=== PATIENT | male | born 1990 | race Caucasian/White ===

== ENCOUNTER 2017-01-08 03:42 | Emergency (ER) | payer SELFPAY ==
[2017-01-08] MEDS ORDERED: FENTANYL CITRATE INJ/PF 100 MCG/2 ML AMPUL IV ONE ×2 (05:30→07:50)
[2017-01-08] MEDS ORDERED: ONDANSETRON HCL INJ/PF 4 MG/2 ML SDV IV ONE (05:30)
--- NOTE | 2017-01-08 05:38 | ER Document Report ---
HPI - HPI Pain Level: 5 Notes: Patient is a 26yo male who presents to the ED c/o left lower leg pain, swelling , warmth x9 hours. The pain is described as a throb, sharp, and constant pain with occ tingling. [place] walking through tall grass when he felt something bite/scratch his anterior leg. Pt did not see what got his leg. He did not notice anything sticking out of his leg. He did notice a very small area with a drop of blood coming out. Pt states that by the time he got home, the pain in the leg started worsening and soon had trouble walking on the leg due to the pain. Pt states that he tried to go to sleep, but couldn't because of the pain. He woke up and vomited x1. Pt has been feeling feverish as well. Pt states that he "just doesn't feel good." Pt states that he can only move his toes because of the swelling and pain to his entire lower leg. On occasion he will feel the pain radiate proximally into his thigh. OTC meds have not been helping the pain. Pt denies any drug allergies or significant PMH. Denies any headache, sore throat, chest pain, palpitations, syncope, cough, shortness of breath, wheeze, dyspnea, abdominal pain, diarrhea, urinary retention, dysuria, hematuria, loss of control of bowel or bladder, saddle anesthesia, or rash. - DERM Skin Color: Normal Past Medical History - Social History Smoking Status: Current Every Day Smoker Family History: Reviewed & Not Pertinent Patient has suicidal ideation: No Patient has homicidal ideation: No Renal/ Medical History: Denies: Hx Peritoneal Dialysis - Immunizations Immunizations up to date: Yes Hx Diphtheria, Pertussis, Tetanus Vaccination: Yes Vertical Provider Document - CONSTITUTIONAL Agree With Documented VS: Yes Notes: PHYSICAL EXAMINATION: GENERAL: Well-appearing, well-nourished and in no acute distress. ENT: EAC clear b/l. TM's intact b/l without erythema, fluid, or perforation. Nares patent and without discharge. oropharynx clear without exudates. No tonsilar hypertrophy or erythema. Moist mucous membranes. No sinus tenderness. No angioedema. NECK: Normal range of motion, supple without lymphadenopathy LUNGS: Breath sounds clear to auscultation bilaterally and equal. No wheezes rales or rhonchi. HEART: Regular rate and rhythm without murmurs, rubs, gallops. ABDOMEN: Soft, nontender, nondistended abdomen. No guarding, no rebound. No masses appreciated. Normal bowel sounds present. No CVA tenderness bilaterally. Musculoskeletal: Lt lower leg: LROM to passive/active at the ankle. FROM to knee. Strength 4+/5. + swelling to the lower leg/ankle/foot with warmth and firmness throughout. No abscess or discharge noted. + tenderness to palp of the lower leg to light palpation. Very sensitive. Extremities: No cyanosis, clubbing, or edema b/l. Peripheral pulses 2+. Capillary refill less than 3 seconds. PSYCH: Normal mood, normal affect. SKIN: + 2 very small and close together puncture wounds to the anteroprox lower leg resembling probable snake bite. No necrosis visualized or streaks. - INFECTION CONTROL TRAVEL OUTSIDE OF THE [place] IN LAST 30 DAYS: No - RESPIRATORY O2 Sat by Pulse Oximetry: 100 Course - Re-evaluation Re-evalutation: 01/08/17 05:[address] Ames who also evaluated the patient: Pt is currently an afebrile, well-hydrated, 26yo male who presents with a suspected copperhead bite to the lower left leg. Vitals currently stable. Pt does not have any health insurance. Dr. Ames thoroughly reviewed the risks/ benefits of Crofab . Dr. Ames is not concerned about ACS at this time based on presentation. In this patient's case, the risks of harm (being financial and livelihood) outweigh the benefits. Pt verbalized understanding of his decision to not accept the crofab at this time. We will treat conservatively for now. CBC, CMP, PTINR, PTT, Fibrinogen, Fibrin. parts all pending. Fentanyl 50mcg given IV today. Zofran 4mg given IV today. XR of the tib/fib pending. Pending labs, observation, and response to treatment, we will discharge home with oral pain control medication and conservative measures with return precautions reviewed. Dr. Ames and myself agreed that PO Morphine IR would be a better option for the patient in lieu of percocet. 01/08/17 06:38 XR of the tib/fib did not show any foreign body or other acute pathology aside from what is already known. 01/08/17 06:54 CBC showed WBC at 13.8 without obvious left shift. 01/08/17 07:20 Summer Álvarez STUDIO MANAGER introduced to patient at bedside, but CMP, Fibrin, PTINR, PTT, unremarkable at this time. Pt continues to have pain, but the pain is not worsening and the swelling is not worsening. Fentanyl 50mcg given IV and toradol 15mg IV given prior to discharge. I will send him home with Morphine IR 15mg and zofran 4mg PO. Strict return precautions reviewed with the patient. Advised recheck with PCM/urgent care/ED in 1-2 days. Return to the ED otherwise with any other worsening/concerning symptoms. Pt is in agreement with plan. consider consult with ortho. - Vital Signs Vital signs: Temp Pulse Resp BP Pulse Ox 98.3 F 102 H 18 135/61 H 100 01/08/17 03:44 01/08/17 03:44 01/08/17 03:44 01/08/17 03:44 01/08/17 03:44 - Laboratory Result Diagrams: 01/08/17 06:11 01/08/17 06:11 Discharge - Discharge Clinical Impression: Snake bite Qualifiers: Encounter type: initial encounter Qualified Code(s): W59.11XA - Bitten by nonvenomous snake, initial encounter Condition: Stable Disposition: HOME, SELF-CARE Instructions: Snakebites ([facility]), Oral Narcotic Medication ([facility]) Additional Instructions: Maintain adequate fluid intake Take medications as directed/needed Rest, ice, elevation important Tylenol/ibuprofen as needed Recheck with an Urgent care/PCM/ED in 1-2 days* Return to the ED with any worsening symptoms and/or development of fever, headache, chest pain, palpitations, syncope, shortness of breath, trouble breathing, abdominal pain, n/v/d, blood in stool/urine, urinary retention, muscle weakness/paralysis, saddle anesthesia, numbness/tingling, pulselessness, pallor of extremity/foot, worsening pain, expanding swelling, necrotic tissue formation, abscess, purulent discharge, or other worsening symptoms that are concerning to you. Prescriptions: Morphine Sulfate [Morphine Ir 15 Mg Tablet] 15 mg PO QID PRN #20 tablet PRN Reason: Ondansetron [Zofran Odt 4 mg Tablet] 1 - 2 tab PO Q4H PRN #15 tab.rapdis PRN Reason: For Nausea/Vomiting Forms: Elevated Blood Pressure, Smoking Cessation Education Referrals: JOSE ROJAS MD [ACTIVE STAFF] - Follow up as needed [facility] [Provider Group] - Follow up in 3-5 days
--- NOTE | 2017-01-08 06:09 | RADIOLOGY REPORT (SQ) ---
EXAM DESCRIPTION: TIBIA FIBULA LEFT COMPLETED DATE/TIME: 01/08/2017 5:54 am REASON FOR STUDY: Snake bite anteroproximal tibia COMPARISON: None. NUMBER OF VIEWS: Two views. TECHNIQUE: Two radiographic images acquired of the left tibia and fibula to include the knee and ank le in at least one projection. LIMITATIONS: None. FINDINGS: MINERALIZATION: Normal. BONES: No acute fracture or dislocation. No worrisome bone lesions. SOFT TISSUES: No obvious swelling or foreign body. Known snake bite injury. OTHER: No other significant finding. IMPRESSION: Known soft tissue injury. Otherwise, NEGATIVE STUDY OF THE LEFT TIBIA AND FIBULA. NO RA DIOGRAPHIC EVIDENCE OF ACUTE INJURY. TECHNICAL DOCUMENTATION: JOB ID: [id number] [employer]- All Rights Reserved
[2017-01-08 06:39] LABS: ABSOLUTE BASOPHILS # (AUTO) 0.1 10^3/uL (0.0-0.2); ABSOLUTE EOSINOPHILS # (AUTO) 0.1 10^3/uL (0.0-0.6); ABSOLUTE LYMPHOCYTES (AUTO) 1.8 10^3/uL (0.5-4.7); ABSOLUTE MONOCYTES (AUTO) 1.3 10^3/uL (0.1-1.4); ABSOLUTE NEUT (AUTO) 10.6 10^3/uL (1.7-8.2); BASOPHILS % (AUTO) 0.6 % (0-2); EOSINOPHILS % (AUTO) 0.6 % (0-6); HEMATOCRIT 45.1 % (37.9-51.0); HEMOGLOBIN 15.8 g/dL (13.5-17.0); HGB HCT DIFFERENCE 2.3; MEAN CORPUSCULAR HEMOGLOBIN 30.1 pg (27.0-33.4); MEAN CORPUSCULAR HGB CONC 35.1 g/dL (32.0-36.0); MEAN CORPUSCULAR VOLUME 86 fl (80-97); MONOCYTES % (AUTO) 9.1 % (3-13); RED BLOOD COUNT 5.25 10^6/uL (4.35-5.55); RED CELL DISTRIBUTION WIDTH 14.2 % (11.5-14.0); SEGMENTED NEUTROPHILS % (AUTO) 76.7 % (42-78); WHITE BLOOD COUNT 13.8 10^3/uL (4.0-10.5)
[2017-01-08 06:52] LABS: PROTHROMBIN TIME 12.9 SEC (11.4-15.4)
[2017-01-08 06:53] LABS: FIBRINOGEN 297 mg/dL (209-497); PARTIAL THROMBOPLASTIN TIME 30.8 SEC (23.5-35.8)
[2017-01-08 06:58] LABS: ALANINE AMINOTRANSFERASE 74 U/L (21-72); ALBUMIN 4.4 g/dL (3.5-5.0); ALKALINE PHOSPHATASE 71 U/L (38-126); ANION GAP 11 (5-19); ASPARTATE AMINO TRANSFERASE 83 U/L (17-59); BILIRUBIN,DIRECT 0.4 mg/dL (0.0-0.4); BILIRUBIN,TOTAL 0.5 mg/dL (0.2-1.3); BLOOD UREA NITROGEN 12 mg/dL (7-20); CALCIUM 9.8 mg/dL (8.4-10.2); CARBON DIOXIDE 25 mmol/L (22-30); CHLORIDE 102 mmol/L (98-107); CREATININE RESULT 0.96 mg/dL (0.52-1.25); GLUCOSE 133 mg/dL (75-110); POTASSIUM 3.9 mmol/L (3.6-5.0); SODIUM 137.8 mmol/L (137-145); TOTAL PROTEIN 7.2 g/dL (6.3-8.2)
[2017-01-08] MEDS ORDERED: KETOROLAC TROMETHAMINE INJ/PF 30 MG/1 ML SDV IV ONE (07:22)
[2017-01-08 08:22] VITALS: BP 135/72
== END 2017-01-08 08:22 | disposition home or self-care (01) ==
LOC: ER 03:42
DX: S81.852A Open bite, left lower leg, initial encounter (principal); M79.605 Pain in left leg; W59.11XA Bitten by nonvenomous snake, initial encounter; F17.200 Nicotine dependence, unspecified, uncomplicated; R11.10 Vomiting, unspecified
CPT/HCPCS: 96376; 99283; 96374; 96375; 36415; 85025; 85384; 85362; 85610; 85730; 80053; 73590; J3010; J1885; J2405

== ENCOUNTER 2017-03-21 13:11 | Emergency (ER) | payer SELFPAY ==
[2017-03-21] MEDS ORDERED: LIDOCAINE 1% INJ-PF (10 MG/ML) 30 ML SDV INJ ONE (14:58)
--- NOTE | 2017-03-21 14:59 | ER Document Report ---
HPI - HPI Pain Level: 4 Context: Patient is a 27-year-old male presents emergency department with left pinky swelling, drainage. Patient states it is been there since Tuesday morning when is a small is that he tried to pop it and that it blew up over the past couple of days. States it hurts to touch but otherwise range of motion does not cause any pain. Denies any break in the skin, trauma, puncture wound. 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 He is not sure if he got stung by a sting ray. Tetanus is up-to-date. - DERM Skin Color: Normal, [place] Past Medical History - Social History Smoking Status: Current Every Day Smoker Chew tobacco use (# tins/day): - 30 Frequency of alcohol use: None Drug Abuse: None Family History: Reviewed & Not Pertinent Patient has suicidal ideation: No Patient has homicidal ideation: No Renal/ Medical History: Denies: Hx Peritoneal Dialysis Surgical Hx: Negative - Immunizations Immunizations up to date: Yes Hx Diphtheria, Pertussis, Tetanus Vaccination: Yes Vertical Provider Document - CONSTITUTIONAL Notes: PHYSICAL EXAM GENERAL: Alert, interacts well. HEAD: Normocephalic, atraumatic. EYES: Pupils equal, round, and reactive to light. Extraocular movements intact. ENT: Oral mucosa moist, tongue midline. NECK: Full range of motion. Supple. Trachea midline. LUNGS: Clear to auscultation bilaterally, no wheezes, rales, or rhonchi. No respiratory distress. HEART: Regular rate and rhythm. No murmurs, gallops, or rubs. ABDOMEN: Soft, nondistended, nontender. No guarding, rebound, or rigidity.. Bowel sounds present in all 4 quadrants. EXTREMITIES: Moves all 4 extremities spontaneously. No edema, radial and dorsalis pedis pulses 2/4 bilaterally. No cyanosis. NEUROLOGICAL: Alert and oriented x4. Normal speech. PSYCH: Normal affect, normal mood. SKIN: Warm, dry, normal turgor. - INFECTION CONTROL TRAVEL OUTSIDE OF THE [place] IN LAST 30 DAYS: No - RESPIRATORY O2 Sat by Pulse Oximetry: 97 Course - Re-evaluation Re-evalutation: 03/21/17 16:30 Patient is a 27-year-old male who is hemodynamically stable, no acute distress afebrile. Evidence of abscess on the lateral aspect of the fifth digit of the left hand. I&D performed at the bedside. No evidence of osteomyelitis noted on x-ray. Patient with significant improvement in symptoms after drainage. Patient initiated on coverage for MRSA as well as vibrio given patient's appointment on patient being "an explosion salt water. Patient to follow-up in 3 days for a wound check. Otherwise discharged home with minimal amount of pain medication. Patient agrees with plan. - Vital Signs Vital signs: Temp Pulse Resp BP Pulse Ox 98.9 F 82 18 124/57 L 97 03/21/17 13:42 03/21/17 13:42 03/21/17 13:42 03/21/17 13:42 03/21/17 13:42 Discharge - Discharge Clinical Impression: Abscess Condition: Good Disposition: HOME, SELF-CARE Instructions: Abscess ([facility]), Oral Narcotic Medication ([facility]), Post Incision and Drainage, Trimethoprim-Sulfa ([facility]) Additional Instructions: Please return in 2-3 days for a wound check. Please return sooner with any worsening signs of fever, chills, lethargy, worsening redness, drainage, increase in size of your wound. Please follow up at [facility] at [facility] [address] [place] [id number] < 1 mi Prescriptions: Doxycycline Hyclate 100 mg PO BID #10 capsule Sulfamethoxazole/Trimethoprim [Bactrim Ds Tablet] 2 each PO BID 7 Days tablet Forms: Return to Work
--- NOTE | 2017-03-21 15:58 | RADIOLOGY REPORT (SQ) ---
EXAM DESCRIPTION: HAND LEFT 3 VIEWS COMPLETED DATE/TIME: 03/21/2017 3:48 pm REASON FOR STUDY: abscess left pinky COMPARISON: None. EXAM PARAMETERS: NUMBER OF VIEWS: Three views. TECHNIQUE: AP, lateral and oblique radiographic images acquired of the left hand. LIMITATIONS: None. FINDINGS: MINERALIZATION: Normal. BONES: No acute fracture or dislocation. No worrisome bone lesions. JOINTS: No effusions. SOFT TISSUES: Diffuse 5th finger soft tissue swelling. No foreign body. OTHER: No other significant finding. IMPRESSION: No fracture. Diffuse 5th finger soft tissue swelling. No foreign body. TECHNICAL DOCUMENTATION: JOB ID: [id number] [employer]- All Rights Reserved
[2017-03-21] MEDS ORDERED: HYDROCODONE/ACETAMINOPHEN 5-325 MG 6 TAB/DSPK PO PRN (16:32)
[2017-03-21] MEDS ORDERED: DOXYCYCLINE HYCLATE 100 MG TABLET PO ONE (16:32)
[2017-03-21] MEDS ORDERED: HYDROCODONE/ACETAMINOPHEN 5-325 MG TABLET PO ONE (16:32)
[2017-03-21] MEDS ORDERED: SULFAMETHOXAZOLE/TRIMETHOPRIM 800-160 MG TABLET PO ONE (16:32)
[2017-03-21 17:19] VITALS: BP 127/60
== END 2017-03-21 17:05 | disposition home or self-care (01) ==
LOC: ER 13:11
PROC: 0H9GXZZ Drainage of Left Hand Skin, External Approach (ICD-10-PCS; principal; 2017-03-21)
DX: L02.512 Cutaneous abscess of left hand (principal); F17.210 Nicotine dependence, cigarettes, uncomplicated
CPT/HCPCS: 99283; 73130; 10060; J3490

== ENCOUNTER 2017-04-11 19:35 | Emergency (ER) | payer SELFPAY ==
[2017-04-11] MEDS ORDERED: VANCOMYCIN HCL INJ 1000 MG VIAL IV ONE ×2 (20:54→22:44)
--- NOTE | 2017-04-11 20:55 | ER Document Report ---
ED Medical Screen (RME) - General Chief Complaint: Abscess Stated Complaint: HAND PAIN Time Seen by Provider: 04/11/17 20:54 Notes: Patient states that he had a "bump" on his right hand several days ago. He states that he "popped it" and now his right hand has become significantly swollen and is draining pus. He states he thinks he may have had MRSA in the past but did not take antibiotics for it. TRAVEL OUTSIDE OF THE [place] IN LAST 30 DAYS: No - Related Data Allergies/Adverse Reactions: No Known Allergies Allergy (Verified 04/11/17 20:41) Home Medications: Current Home Medications No Home Medications 04/11/17 [History] Past Medical History Renal/ Medical History: Denies: Hx Peritoneal Dialysis - Immunizations Immunizations up to date: Yes Hx Diphtheria, Pertussis, Tetanus Vaccination: Yes Physical Exam - Vital signs Vitals: Temp Pulse Resp BP Pulse Ox 98.2 F 92 20 132/63 H 98 04/11/17 20:17 04/11/17 20:17 04/11/17 20:17 04/11/17 20:17 04/11/17 20:17 Course - Vital Signs Vital signs: Temp Pulse Resp BP Pulse Ox 98.2 F 92 20 132/63 H 98 04/11/17 20:17 04/11/17 20:17 04/11/17 20:17 04/11/17 20:17 04/11/17 20:17
--- NOTE | 2017-04-11 21:37 | RADIOLOGY REPORT (SQ) ---
EXAM DESCRIPTION: HAND RIGHT 3 VIEWS COMPLETED DATE/TIME: 04/11/2017 9:20 pm REASON FOR STUDY: pain/swelling COMPARISON: None. EXAM PARAMETERS: NUMBER OF VIEWS: Three views. TECHNIQUE: AP, lateral and oblique radiographic images acquired of the right hand. LIMITATIONS: None. FINDINGS: MINERALIZATION: Normal. BONES: No acute fracture or dislocation. No worrisome bone lesions. JOINTS: No effusions. SOFT TISSUES: Generalized soft tissue swelling particularly dorsal and medial. Possible sliver of a foreign body present. OTHER: No other significant finding. IMPRESSION: No acute bony changes. Generalized marked soft tissue swelling with a possible tiny loose body. TECHNICAL DOCUMENTATION: JOB ID: [id number] [employer]- All Rights Reserved
[2017-04-11 21:41] LABS: ABSOLUTE BASOPHILS # (AUTO) 0.1 10^3/uL (0.0-0.2); ABSOLUTE EOSINOPHILS # (AUTO) 0.4 10^3/uL (0.0-0.6); ABSOLUTE LYMPHOCYTES (AUTO) 2.3 10^3/uL (0.5-4.7); ABSOLUTE MONOCYTES (AUTO) 1.1 10^3/uL (0.1-1.4); ABSOLUTE NEUT (AUTO) 8.3 10^3/uL (1.7-8.2); BASOPHILS % (AUTO) 0.9 % (0-2); EOSINOPHILS % (AUTO) 3.6 % (0-6); HEMATOCRIT 41.5 % (37.9-51.0); HEMOGLOBIN 14.1 g/dL (13.5-17.0); HGB HCT DIFFERENCE 0.8; LYMPHOCYTES % (AUTO) 18.4 % (13-45); MEAN CORPUSCULAR HEMOGLOBIN 29.3 pg (27.0-33.4); MEAN CORPUSCULAR HGB CONC 34.1 g/dL (32.0-36.0); MEAN CORPUSCULAR VOLUME 86 fl (80-97); MONOCYTES % (AUTO) 9.3 % (3-13); RED BLOOD COUNT 4.82 10^6/uL (4.35-5.55); RED CELL DISTRIBUTION WIDTH 13.5 % (11.5-14.0); SEGMENTED NEUTROPHILS % (AUTO) 67.8 % (42-78); WHITE BLOOD COUNT 12.3 10^3/uL (4.0-10.5)
[2017-04-11 21:56] LABS: ALANINE AMINOTRANSFERASE 37 U/L (21-72); ALKALINE PHOSPHATASE 77 U/L (38-126); ANION GAP 11 (5-19); ASPARTATE AMINO TRANSFERASE 23 U/L (17-59); BILIRUBIN,DIRECT 0.4 mg/dL (0.0-0.4); BILIRUBIN,TOTAL 0.4 mg/dL (0.2-1.3); BLOOD UREA NITROGEN 16 mg/dL (7-20); CALCIUM 9.6 mg/dL (8.4-10.2); CARBON DIOXIDE 30 mmol/L (22-30); CHLORIDE 102 mmol/L (98-107); CREATININE RESULT 0.91 mg/dL (0.52-1.25); GLUCOSE 87 mg/dL (75-110); POTASSIUM 4.5 mmol/L (3.6-5.0); SODIUM 143.3 mmol/L (137-145); TOTAL PROTEIN 7.1 g/dL (6.3-8.2)
--- NOTE | 2017-04-11 22:44 | ER Document Report ---
ED Skin Rash/Insect Bite/Abscs - General Chief Complaint: Abscess Stated Complaint: HAND PAIN Time Seen by Provider: 04/11/17 20:54 Mode of Arrival: Ambulatory Information source: Patient TRAVEL OUTSIDE OF THE [place] IN LAST 30 DAYS: No - HPI Patient complains to provider of: Tender/swollen area Notes: 27-year-old male [id number] presents with pain swelling and abscess to his right lateral hand. He is unsure if it was injured but states he might have it it as he takes his life in and out of his pocket frequently. 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 He does not remember if he has had a history of MRSA. His tetanus shot is up-to-date. Denies any distal numbness or tingling. Complains of moderately severe pain. He did squeeze the area that started like a "pimple" and noted a fair amount of purulent drainage coming from it. Pain is isolated to the hand. Worse with movement. He has had some nausea as well. Denies systemic symptoms otherwise. No fever noted. Denies punching anybody and no mouth injury to this hand. - Related Data Allergies/Adverse Reactions: No Known Allergies Allergy (Verified 04/11/17 20:41) Past Medical History - Social History Smoking Status: Current Every Day Smoker Family History: Reviewed & Not Pertinent Patient has suicidal ideation: No Patient has homicidal ideation: No Renal/ Medical History: Denies: Hx Peritoneal Dialysis - Immunizations Immunizations up to date: Yes Hx Diphtheria, Pertussis, Tetanus Vaccination: Yes Review of Systems - Review of Systems -: Yes All other systems reviewed and negative Physical Exam - Vital signs Vitals: Temp Pulse Resp BP Pulse Ox 98.2 F 92 20 132/63 H 98 04/11/17 20:17 04/11/17 20:17 04/11/17 20:17 04/11/17 20:17 04/11/17 20:17 - Notes Notes: GENERAL: VS as per nursing doc. Well-appearing, well-nourished and in no acute distress. Nontoxic HEAD: Atraumatic, normocephalic. EYES: Sclera anicteric, no conjunctival injection or discharge. ENT: Nares patent, oropharynx clear without exudates, moist mucous membranes. NECK: Supple without lymphadenopathy. LUNGS: Breath sounds clear to auscultation bilaterally and equal. No wheezes rales or rhonchi. HEART: Regular rate and rhythm without murmurs. ABDOMEN: Soft, non-tender. EXTREMITIES: Normal range of motion, neurovascularly intact distally NEUROLOGICAL: Normal distal function and sensation PSYCH: Normal mood, normal affect. SKIN: Warm, dry, there is what appears to be a draining abscess of the lateral right hand more over the proximal fifth metacarpal slightly more volar. There is a "hole" without any fluctuance noted. There is purulent discharge noted which has been sent today for culture. There is macerated overlying skin surrounding with some mild erythema. There is no erythema proximal to the wrist. Course - Re-evaluation Re-evalutation: 04/11/17 22:43 Labs reviewed, slight elevated white blood cell count 12.3. Patient denies IV drug abuse, though he has been here previously for apparent overdose per stated chief complaint of bath salts. He does have reason to have trauma to this area. We will treat it at this point like MRSA. Wound culture blood cultures are pending. X-ray showed no clear abnormality though there is a small foreign body which I do note on February,. We will place him on antibiotics and have him recheck in 24 hours. It is draining well at this point does not need further drainage. He voices understanding of follow-up as well as warning signs to watch for. - Vital Signs Vital signs: Temp Pulse Resp BP Pulse Ox 98.2 F 92 20 132/63 H 98 04/11/17 20:17 04/11/17 20:17 04/11/17 20:17 04/11/17 20:17 04/11/17 20:17 - Laboratory Result Diagrams: 04/11/17 21:30 04/11/17 21:30 Laboratory results interpreted by me: 04/11/17 21:30 WBC 12.3 H Absolute Neutrophils 8.3 H Discharge - Discharge Clinical Impression: Abscess, hand Condition: Good Disposition: HOME, SELF-CARE Instructions: Abscess ([facility]), Oral Narcotic Medication ([facility]), Trimethoprim- Sulfa ([facility]) Additional Instructions: Please ensure you get follow-up in the next 24 hours, here in the emergency department if necessary. Consider contacting Dr. Strickland in the morning to arrange follow-up as well. Finish all of the antibiotics as directed, return for worsening otherwise sooner. Prescriptions: Promethazine HCl [Phenergan 25 mg Tablet] 1 tab PO Q4HP PRN #10 tablet PRN Reason: Acetaminophen with Codeine [Tylenol #3 Tablet] 1 - 2 each PO Q6HP PRN #10 tablet PRN Reason: For Pain Sulfamethoxazole/Trimethoprim [Bactrim Ds Tablet] 1 each PO BID #20 tablet Forms: Smoking Cessation Education Referrals: MARCO A STRICKLAND DO [ACTIVE STAFF] - Follow up as needed
[2017-04-11] MEDS ORDERED: ACETAMINOPHEN WITH CODEINE #3 TABLET PO ONE (23:12)
[2017-04-11] MEDS ORDERED: SULFAMETHOXAZOLE/TRIMETHOPRIM 800-160 MG TABLET PO ONE (23:12)
[2017-04-11] MEDS ORDERED: ONDANSETRON 4 MG TAB.RAPDIS PO ONE (23:12)
[2017-04-12 00:22] VITALS: BP 131/54
== END 2017-04-12 00:22 | disposition home or self-care (01) ==
LOC: ER 19:35
DX: L02.511 Cutaneous abscess of right hand (principal); F17.200 Nicotine dependence, unspecified, uncomplicated
CPT/HCPCS: 99283; 96365; 96366; 36415; 87040; 87070; 87205; 85025; 87075; 87077; 80053; 87186; 73130; S0119; J3370

== ENCOUNTER 2019-01-27 17:33 | Emergency (ER) | payer SELFPAY ==
[2019-01-27 17:43] VITALS: BP 135/69
[2019-01-27] MEDS ORDERED: CIPROFLOXACIN HCL/DEXAMETH OTIC DROP 7.5 ML AU ONE (18:41)
--- NOTE | 2019-01-27 18:43 | ER Document Report ---
HPI - HPI Time Seen by Provider: 01/27/19 17:58 Pain Level: 3 Notes: Patient is otherwise healthy 28-year-old male presenting to the emergency department via EMS for bilateral ear pain. Patient reports he was cleaning out both of his ears with Q-tips and started having pain afterwards. Patient has not taken any Tylenol or ibuprofen for this. Patient denies any fevers or other illness. Past Medical History - General Information source: Patient - Social History Smoking Status: Current Every Day Smoker Frequency of alcohol use: None Drug Abuse: None Family History: Reviewed & Not Pertinent - Medical History Medical History: Negative Renal/ Medical History: Denies: Hx Peritoneal Dialysis Surgical Hx: Negative - Immunizations Immunizations up to date: Yes Hx Diphtheria, Pertussis, Tetanus Vaccination: Yes Vertical Provider Document - CONSTITUTIONAL Notes: PHYSICAL EXAMINATION: GENERAL: Well-appearing, well-nourished and in no acute distress. HEAD: Atraumatic, normocephalic. EYES: Pupils equal round extraocular movements intact, conjunctiva are normal. ENT: Nares patent, bilateral TMs unremarkable, bilateral canals macerated and erythematous. NECK: Normal range of motion LUNGS: No respiratory distress Musculoskeletal: Normal range of motion NEUROLOGICAL: Normal speech, normal gait. PSYCH: Normal mood, normal affect. SKIN: Warm, Dry, normal turgor, no rashes or lesions noted. - INFECTION CONTROL TRAVEL OUTSIDE OF THE [place] IN LAST 30 DAYS: No Course - Re-evaluation Re-evalutation: Examination is consistent with acute otitis externa. Patient will be started on Ciprodex drops here in the emergency department. Patient is otherwise stable, examination is unremarkable. Patient will be discharged home in stable condition at this time. - Vital Signs Vital signs: Temp Pulse Resp BP Pulse Ox 98.6 F 78 135/69 H 98 01/27/19 17:42 01/27/19 17:42 01/27/19 17:42 01/27/19 17:42 Discharge - Discharge Clinical Impression: Otitis externa Qualifiers: Otitis externa type: unspecified type Chronicity: acute Laterality: bilateral Qualified Code(s): H60.503 - Unspecified acute noninfective otitis externa, bilateral Condition: Stable Disposition: HOME, SELF-CARE Instructions: Use of Ear Drops ([facility]), Otitis Externa ([facility]) Additional Instructions: Your exam is consistent with an external ear infection. Please apply for drops of the Ciprodex to each ear twice daily. No swimming or going in any bodies of water. Take ibuprofen 600 mg every 6 hours for pain. Return to the emergency department with any new or worsening symptoms. This is
== END 2019-01-27 18:51 | disposition home or self-care (01) ==
LOC: ER 17:33
DX: H60.503 Unspecified acute noninfective otitis externa, bilateral (principal); H92.02 Otalgia, left ear; F17.200 Nicotine dependence, unspecified, uncomplicated
CPT/HCPCS: 99283; J3490